=== PATIENT | male | born 1975 | race Caucasian/White ===

== ENCOUNTER 2016-11-22 13:17 | Emergency (ER) | payer SELFPAY ==
[~2016-11-22] VITALS: Ht 182.9 cm; Wt 72.0 kg
[2016-11-22 13:35] VITALS: Ht 182.9 cm; Wt 72.0 kg
[2016-11-22] MEDS ORDERED: KETOROLAC TROMETHAMINE 30 MG/ML VIAL IV STA (13:51)
[2016-11-22] MEDS ORDERED: SODIUM CHLORIDE 0.9% 1000ML 1,000 ML IV STA (13:51)
[2016-11-22] MEDS ORDERED: DiphenhydrAMINE HCL 50 MG/ML VIAL IV STA (13:51)
[2016-11-22] MEDS ORDERED: PROCHLORPERAZINE 5 MG/ML 2 ML VIAL IV STA (13:51)
--- NOTE | 2016-11-22 13:52 | EMERGENCY ROOM VISIT NOTE ---
History Report prepared by Elizabeth: Rich Vasquez Under the Supervision of: Dr. Tommy Monk M.D. First contact with patient: 13:35 Chief Complaint: HEADACHE Stated Complaint: SPASMS, HEADACHE, HANDS GO NUMB, EYES HURT History of Present Illness The patient is a 41 year old male who presents to the Emergency Room with complaints of a persistent illness that started 4 days ago. He says that he was fine before the illness. The patient states that he has been having spasms all over his body, and he does not know why. He adds that his head and eyes hurt, and it hurts to look in different directions. The patient notes that he has been having abdominal pain, and he has not had a bowel movement in 4 days. He says that he has never had symptoms like this before. Source of History: patient Onset: 4 days ago Position: other (global - illness) Timing: other (persistent) Associated Symptoms: + headache, + abdominal pain Note: Associated symptoms: Eye pain, hurts to look in different directions. Spasms all over body. No bowel movements in 4 days. Review of Systems See HPI for pertinent positives & negatives. A total of 10 systems reviewed and were otherwise negative. Past Medical & Surgical Medical Problems: (1) No chronic diseases present Surgical Problems: (1) History of neck surgery Family History No pertinent family history Social History Smoking Status: Current Every Day Smoker Alcohol Use: other (rarely) Housing Status: lives with roommate Occupation Status: employed Current/Historical Medications No Active Prescriptions or Reported Meds Allergies Coded Allergies: Acetaminophen (Unverified Allergy, Severe, SICKNESS, 11/22/16) Morphine and Related (Unverified Allergy, Severe, SICKNESS, 11/22/16) Oxycodone (Unverified Allergy, Severe, SICKNESS, 11/22/16) Physical Exam Vital Signs Date Time Temp Pulse Resp B/P (MAP) Pulse Ox O2 Delivery O2 Flow Rate FiO2 11/22/16 16:43 37.5 95 16 115/67 99 11/22/16 13:35 37.0 111 20 130/68 99 Room Air Physical Exam GENERAL: Patient is an actively hyperventilating, well-nourished 41 year old male. HEAD: Normocephalic atraumatic EYES: Ocular movements intact pupils equal and react to light OROPHARYNX mucous membranes are moist no exudates present no erythema or edema present NECK: Supple no nuchal rigidity CHEST: Good equal expansion LUNGS: Clear and equal to auscultation CARDIAC: Normal S1 and S2 ABDOMEN: Diffusely tender in the abdomen. Soft no guarding BACK: No CVA tenderness EXTREMITIES: No pain upon palpation normal muscle strength in all groups no clubbing cyanosis or edema NEURO: Patient is following commands and answering questions appropriately. Alert and oriented x3 Cranial Nerves 2-12 grossly intact Medical Decision & Procedures ER Provider Diagnostic Interpretation: CT results as stated below per my review and radiologist interpretation: ABD/PELVIS IV CONTRAST ONLY HISTORY: 41 years-old Male Pt c/o diffuse abd pain acute generalized abdominal pain. Initial exam. COMPARISON: None available. TECHNIQUE: Multiple axial CT images of the abdomen and pelvis were obtained following the intravenous administration of 93 mL Optiray 320. A dose lowering technique was used consistent with the principals of MURALI. FINDINGS: The lung bases are generally clear. There is a small left Bochdalek hernia. No pneumoperitoneum. Intracardiac chambers are unremarkable. Nonspecific left paracentral epicardial lymph node is seen, 4 mm in short axis. The liver, spleen, pancreas and right adrenal gland are within normal limits. There is mild nodular thickening of the left adrenal gland suggesting hyperplasia. Gallstone noted along the dependent gallbladder lumen without CT evidence of acute cholecystitis. Kidneys and ureters are within normal limits. Urinary bladder is partially collapsed and demonstrates moderate urinary wall thickening. The abdominal aorta is normal in both course and caliber. There is no bulky retroperitoneal adenopathy. Duodenal diverticulum is noted. There is no bowel obstruction or focal bowel wall thickening. Several air-fluid levels are noted within nondilated ileum, likely incidental. Mild to moderate stool burden. The appendix is tortuous and appears normal. Soft tissues are unremarkable. The bones demonstrate no acute abnormality. Chronic bony fragmentation is noted surrounding the left facet joint at L4-L5 suggesting remote trauma. IMPRESSION: 1. Cholelithiasis without CT evidence of acute cholecystitis. 2. Normal appearance of the appendix. 3. Wall thickening of the urinary bladder may be related to nondistention or cystitis. Correlate with urinalysis. The above report was generated using voice recognition software. It may contain grammatical, syntax or spelling errors. Electronically signed by: Ciaran Gordillo M.D. 11/22/2016 3:29 PM Dictated Date/Time: 11/22/2016 3:21 PM Laboratory Results 11/22/16 14:15 Red Blood Count 5.14, Mean Corpuscular Volume 89.5, Mean Corpuscular Hemoglobin 32.1, Mean Corpuscular Hemoglobin Concent 35.9, Mean Platelet Volume 12.0, Neutrophils (%) (Auto) 82.9, Lymphocytes (%) (Auto) 11.2, Monocytes (%) (Auto) 4.9, Eosinophils (%) (Auto) 0.0, Basophils (%) (Auto) 0.5, Neutrophils # (Auto) 3.02, Lymphocytes # (Auto) 0.41, Monocytes # (Auto) 0.18, Eosinophils # (Auto) 0.00, Basophils # (Auto) 0.02 11/22/16 14:15 Test 11/22/16 14:15 11/22/16 14:21 11/22/16 14:45 White Blood Count 3.65 K/uL (4.8-10.8) Red Blood Count 5.14 M/uL (4.7-6.1) Hemoglobin 16.5 g/dL (14.0-18.0) Hematocrit 46.0 % (42-52) Mean Corpuscular Volume 89.5 fL (80-100) Mean Corpuscular Hemoglobin 32.1 pg (25-34) Mean Corpuscular Hemoglobin Concent 35.9 g/dl (32-36) Platelet Count 74 K/uL (130-400) Mean Platelet Volume 12.0 fL (7.4-10.4) Neutrophils (%) (Auto) 82.9 % Lymphocytes (%) (Auto) 11.2 % Monocytes (%) (Auto) 4.9 % Eosinophils (%) (Auto) 0.0 % Basophils (%) (Auto) 0.5 % Neutrophils # (Auto) 3.02 K/uL (1.4-6.5) Lymphocytes # (Auto) 0.41 K/uL (1.2-3.4) Monocytes # (Auto) 0.18 K/uL (0.11-0.59) Eosinophils # (Auto) 0.00 K/uL (0-0.5) Basophils # (Auto) 0.02 K/uL (0-0.2) RDW Standard Deviation 40.4 fL (36.4-46.3) RDW Coefficient of Variation 12.3 % (11.5-14.5) Immature Granulocyte % (Auto) 0.5 % Immature Granulocyte # (Auto) 0.02 K/uL (0.00-0.02) Toxic Vacuolation 1+ Platelet Estimate DECREASED Giant Platelets 1+ Est Creatinine Clear Calc Drug Dose 101.0 ml/min Estimated GFR () 109.4 Estimated GFR (Non- 94.4 BUN/Creatinine Ratio 10.6 (10-20) Calcium Level 8.9 mg/dl (8.5-10.1) Magnesium Level 2.3 mg/dl (1.8-2.4) Total Bilirubin 0.3 mg/dl (0.2-1) Direct Bilirubin 0.1 mg/dl (0-0.2) Aspartate Amino Transf (AST/SGOT) 40 U/L (15-37) Alanine Aminotransferase (ALT/SGPT) 41 U/L (12-78) Alkaline Phosphatase 71 U/L (45-117) Total Creatine Kinase 84 U/L (39-308) Total Protein 7.7 gm/dl (6.4-8.2) Albumin 3.7 gm/dl (3.4-5.0) Lipase 148 U/L (73-393) Bedside Hemoglobin 16.7 g/dl (14.0-18.0) Bedside Hematocrit 49 % (42-52) Bedside Sodium 135 mEq/L (135-144) Bedside Potassium 3.3 mEq/L (3.3-5.0) Bedside Chloride 95 mEq/L (101-112) Bedside Total CO2 25 mEq/l (24-31) Anion Gap 19.0 mmol/L (16-25) Bedside Blood Urea Nitrogen 11 mg/dl (7-18) Bedside Creatinine 0.9 mg/dl (0.6-1.3) Bedside Glucose (other) 97 mg/dl (70-99) Bedside Ionized Calcium ([place]) 1.07 mmol/l (1.12-1.32) Urine Color DK YELLOW Urine Appearance CLEAR (CLEAR) Urine pH 6.5 (4.5-7.5) Urine Specific [place] 1.024 (1.000-1.030) Urine Protein 2+ (NEG) Urine Glucose (UA) NEG (NEG) Urine Ketones NEG (NEG) Urine Occult Blood TRACE (NEG) Urine Nitrite NEG (NEG) Urine Bilirubin NEG (NEG) Urine Urobilinogen NEG (NEG) Urine Leukocyte Esterase NEG (NEG) Urine WBC (Auto) 1-5 /hpf (0-5) Urine RBC (Auto) 5-10 /hpf (0-4) Urine Hyaline Casts (Auto) 1-5 /lpf (0-5) Urine Epithelial Cells (Auto) 10-20 /lpf (0-5) Urine Bacteria (Auto) NEG (NEG) Labs reviewed by ED physician. Medications Administered Medications (Trade) Dose Ordered Sig/Alex Route Start Time Stop Time Status Last Admin Dose Admin Sodium Chloride 1,000 ml @ 999 mls/hr Q1H1M STAT IV 11/22/16 13:51 11/22/16 14:51 DC 11/22/16 14:53 999 MLS/HR Ketorolac Tromethamine (Toradol Inj) 30 mg NOW STAT IV 11/22/16 13:51 11/22/16 13:54 DC 11/22/16 15:01 30 MG Prochlorperazine Edisylate (Compazine Inj) 5 mg NOW STAT IV 11/22/16 13:51 11/22/16 13:54 DC 11/22/16 15:01 5 MG Diphenhydramine HCl (Benadryl Inj) 50 mg NOW STAT IV 11/22/16 13:51 11/22/16 13:54 DC 11/22/16 15:02 50 MG Potassium Chloride (Nisa Ciel Elix) 70 meq NOW STAT PO 11/22/16 14:47 11/22/16 14:48 DC 11/22/16 15:12 70 MEQ ED Course 1347: Past medical records reviewed. The patient was evaluated in room B9. A complete history and physical examination was performed. 1351: Ordered Benadryl Inj 50 mg IV, Compazine Inj 5 mg IV, Toradol Inj 30 mg IV , NSS 1000 ml @ 999 mls/hr IV. 1447: Ordered Nisa Ciel Elix 70 meq PO. 1459: I reevaluated and updated the patient. 1630: Upon reexamination the patient is resting comfortably. I discussed results and treatment plan with the patient. He verbalizes agreement and understanding. The patient is ready for discharge. Medical Decision Differential diagnosis: Etiologies such as appendicitis, diverticulitis, PUD, biliary pathology, UTI, pancreatitis, obstruction, mesenteric ischemia, aortic pathology, infections, inflammatory bowel disease, renal colic, as well as others were entertained. This is a 3-year-old male who presents emergency department complaining of multiple complaints. The patient reports she has a headache and however is actively hyperventilating on exam. I do believe a large amount of the patient' s symptoms are due to the hyperventilation and I tried to reassure the patient and attempt to get his breathing under control. An IV was established, patient given normal saline bolus, Toradol, Compazine, Benadryl. Repeat examination revealed much improvement the patient's symptoms. The patient is also complaining of diffuse abdominal pain therefore he was sent for CAT scan abdomen and pelvis. I will note that the patient has a normal CBC normal renal profile normal liver profile normal lipase. In addition he has a normal CAT scan of the abdomen and pelvis. His potassium was repleted in the emergency department. I do feel that the patient is well enough to be discharged home for follow-up with his family doctor. Patient was in agreement with the treatment plan. Medication Reconcilliation Current Medication List: was personally reviewed by me Blood Pressure Screening Patient's blood pressure: Elevated blood pressure Blood pressure disposition: Referred to PCP Impression Primary Impression: Headache Scribe Attestation The scribe's documentation has been prepared under my direction and personally reviewed by me in its entirety. I confirm that the note above accurately reflects all work, treatment, procedures, and medical decision making performed by me. Departure Information Dispostion Home / Self-Care Prescriptions No Active Prescriptions or Reported Meds Referrals No Doctor, Assigned (PCP) Forms HOME CARE DOCUMENTATION FORM, IMPORTANT VISIT INFORMATION, School Instructions, Work Instructions Patient Instructions ED Hyperventilation Syndrome, Headache Pain, My [facility] Additional Instructions You have been examined and treated today on an emergency basis only. This is not a substitute for, or an effort to provide, complete comprehensive medical care. It is impossible to recognize and treat all injuries or illnesses in a single emergency department visit. It is therefore important that you follow up closely with your PCP. Call as soon as possible for an appointment. Thank you for your time and consideration. I look forward to speaking with you again soon. Please don't hesitate to call us if you have any questions. Problem Qualifiers Primary Impression: Headache Headache type: unspecified Headache chronicity pattern: unspecified pattern Intractability: not intractable Qualified Codes: R51 - Headache
[2016-11-22] MEDS ORDERED: OPTIRAY 320 IV PRN (14:00)
[2016-11-22 14:41] LABS: ISTAT CREATININE 0.9 mg/dl (0.6-1.3); ISTAT HEMOGLOBIN 16.7 g/dl (14.0-18.0); ISTAT IONIZED CALCIUM 1.07 mmol/l (1.12-1.32)
[2016-11-22 14:47] LABS: BUN/CREATININE RATIO 10.6 (10-20); CALCIUM 8.9 mg/dl (8.5-10.1); POTASSIUM 3.4 mmol/L (3.5-5.1)
[2016-11-22] MEDS ORDERED: POTASSIUM CHLORIDE 20 MEQ/15 ML UDC PO STA (14:47)
[2016-11-22 14:48] LABS: MEAN CELL VOLUME 89.5 fL (80-100); MEAN CORPUSCULAR HEMOGLOBIN 32.1 pg (25-34); MEAN CORPUSCULAR HGB CONC 35.9 g/dl (32-36); PLATELET COUNT 74 K/uL (130-400); RED BLOOD COUNT 5.14 M/uL (4.7-6.1); WHITE BLOOD COUNT 3.65 K/uL (4.8-10.8)
[2016-11-22 14:49] LABS: BASO % 0.5 %; BASO ABS # 0.02 K/uL (0-0.2); COMPLETE YES; GIANT PLATELETS 1+; IG% 0.5 %; LYMPH % 11.2 %; LYMPH ABS # 0.41 K/uL (1.2-3.4); MONO % 4.9 %; NEUT % 82.9 %; PLT ESTIMATE DECREASED; VACUOLIZATION 1+
[2016-11-22 14:57] LABS: URINE APPEARANCE CLEAR (CLEAR); URINE BILIRUBIN NEG (NEG); URINE COLOR DK YELLOW; URINE NITRITE NEG (NEG); URINE PH 6.5 (4.5-7.5); URINE SPECIFIC GRAVITY 1.024 (1.000-1.030); UROBILINOGEN NEG (NEG)
[2016-11-22 14:58] LABS: MANUAL MICROSCOPIC REQUIRED? NO; REVIEW REQ? NO
--- NOTE | 2016-11-22 15:30 | DIAGNOSTIC IMAGING REPORT ---
ABD/PELVIS IV CONTRAST ONLY HISTORY: 41 years-old Male Pt c/o diffuse abd pain acute generalized abdominal pain. Initial exam. COMPARISON: None available. TECHNIQUE: Multiple axial CT images of the abdomen and pelvis were obtained following the intravenous administration of 93 mL Optiray 320. A dose lowering technique was used consistent with the principals of MURALI. FINDINGS: The lung bases are generally clear. There is a small left Bochdalek hernia. No pneumoperitoneum. Intracardiac chambers are unremarkable. Nonspecific left paracentral epicardial lymph node is seen, 4 mm in short axis. The liver, spleen, pancreas and right adrenal gland are within normal limits. There is mild nodular thickening of the left adrenal gland suggesting hyperplasia. Gallstone noted along the dependent gallbladder lumen without CT evidence of acute cholecystitis. Kidneys and ureters are within normal limits. Urinary bladder is partially collapsed and demonstrates moderate urinary wall thickening. The abdominal aorta is normal in both course and caliber. There is no bulky retroperitoneal adenopathy. Duodenal diverticulum is noted. There is no bowel obstruction or focal bowel wall thickening. Several air-fluid levels are noted within nondilated ileum, likely incidental. Mild to moderate stool burden. The appendix is tortuous and appears normal. Soft tissues are unremarkable. The bones demonstrate no acute abnormality. Chronic bony fragmentation is noted surrounding the left facet joint at L4-L5 suggesting remote trauma. IMPRESSION: 1. Cholelithiasis without CT evidence of acute cholecystitis. 2. Normal appearance of the appendix. 3. Wall thickening of the urinary bladder may be related to nondistention or cystitis. Correlate with urinalysis. The above report was generated using voice recognition software. It may contain grammatical, syntax or spelling errors. Electronically signed by: Ciaran Gordillo M.D. 11/22/2016 3:29 PM Dictated Date/Time: 11/22/2016 3:21 PM
[2016-11-22 16:43] VITALS: BP 115/67; PULSE 95; TEMP 37.5; O2SAT 99
== END 2016-11-22 16:40 | disposition home or self-care (01) ==
LOC: C.EDB 13:19
DX: R51 Headache (principal); F17.210 Nicotine dependence, cigarettes, uncomplicated